=== PATIENT | male | born 1980 | race Caucasian/White ===

== ENCOUNTER 2019-07-09 09:39 | Outpatient (REF) | payer OTHER, SELFPAY ==
[2019-07-09 19:51] LABS: Calculated LDL 159 mg/dL; Cholesterol 240 mg/dL (50-200); Glucose 113 mg/dL (70-100); HDL Cholesterol 52 mg/dL (40-60); Triglyceride 149 mg/dL (30-150)
== END 2019-07-09 09:59 ==
LOC: NCHCN 09:39
PROVIDERS: PCP Nurse Practitioner Family; Visit Provider Nurse Practitioner Family
DX: Z00.00 Encounter for general adult medical examination without abnormal findings (principal); Z13.1 Encounter for screening for diabetes mellitus; Z13.220 Encounter for screening for lipoid disorders
CPT/HCPCS: 80061; 82947

== ENCOUNTER 2020-12-31 16:08 | Outpatient (REF) | payer OTHER, SELFPAY ==
[2020-12-31 19:15] LABS: Abs Immature Grans 0.02 10^3/uL (0.0-0.06); Absolute Basophil Count 0.03 10^3/uL (0.0-0.2); Absolute Eosinophil Count 0.13 10^3/uL (0.0-0.7); Absolute Neutrophil Count 3.63 10^3/uL (1.2-6.7); Basophils % 0.4; Eosinophils % 1.8; HCT 41.2 % (40.0-50.0); HGB 14.6 g/dL (13.5-17.5); Immature Grans % 0.3; MCH 32.3 pg (27.0-33.0); MCHC 35.4 % (32.0-36.0); MCV 91.2 fL (80-95); MPV 9.7 fL (8.0-11.0); Monocytes % 8.4; Neutrophils % 51.1; Nucleated RBC 0 %; Platelet Count 313 10^3/uL (130-400); RBC 4.52 10^6/uL (4.36-5.78); RDW 12.3 % (11.8-14.1); RDW-SD 40.9 fL; WBC 7.11 10^3/uL (4.4-10.8)
[2020-12-31 19:51] LABS: ALT 40 U/L (16-63); AST 21 U/L (15-37); Albumin 4.1 g/dL (3.4-5.0); Alkaline Phosphatase 88 U/L (46-116); Anion Gap 12.6 mmol/L (3-11); BUN 24 mg/dL (7-18); Bilirubin, Total 0.3 mg/dL (0.2-1.0); CO2 24.4 mmol/L (21.0-32.0); Calcium 9.2 mg/dL (8.5-10.1); Chloride 106 mmol/L (98-107); Glucose 96 mg/dL (74-106); Potassium 4.2 mmol/L (3.5-5.1); Sodium 143 mmol/L (136-145); Total Protein 6.7 g/dL (6.4-8.2)
== END 2020-12-31 16:09 | disposition home or self-care (01) ==
LOC: NCHCN 16:08
PROVIDERS: PCP Nurse Practitioner Family; Visit Provider Physician Assistant
DX: F10.10 Alcohol abuse, uncomplicated (principal); Z91.89 Other specified personal risk factors, not elsewhere classified; R68.89 Other general symptoms and signs
CPT/HCPCS: 80053; 83655; 85025